=== PATIENT | female | born 1960 | race Caucasian/White ===

== ENCOUNTER → 2020-12-29 13:29 | Outpatient (CLI) | payer OTHER, SELFPAY ==
--- NOTE | ~2020-12-29 | XR_ITS ---
XR lumbar spine min 4V DATE: 12/29/2020 14:05 INDICATION: Low back pain TECHNIQUE: AP, lateral, coned lateral lumbosacral views. Flexion and extension lateral views. COMPARISON: None FINDINGS: Intervertebral cage device at L4-5. Left L4-5 posterior fusion with pedicle screws and rods. There is diffuse osteopenia. There is mild levoscoliosis of the lower thoracic and lumbar spine. The included lower thoracic and lumbar pedicles are intact. No lumbar spine fracture or bone destruct ion is evident. There is no instability evident on flexion or extension. There is severe degenerative disc disease at L5-S1. There is mild degenerative disc disease at L1-2 a nd L2-3. The sacroiliac joints are intact. IMPRESSION: Intervertebral and posterior left surgical spinal fusion at L4-5 Severe degenerative disc disease at L5-S1 Osteopenia Reviewed, dictated and finalized at location B.
== END ==
PROVIDERS: PCP Internal Medicine
DX: M47.817 Spondylosis without myelopathy or radiculopathy, lumbosacral region (principal); Z98.1 Arthrodesis status
CPT/HCPCS: 72110

== ENCOUNTER 2021-02-23 09:41 | Outpatient (CLI) | payer OTHER, SELFPAY ==
[2021-02-23 10:27] LABS: Alanine Aminotransferase 15 U/L (4-35); Albumin Level 4.2 g/dL (3.5-5.1); Alkaline Phosphatase 59 U/L (38-126); Anion Gap 5 mmol/L (8-16); Aspartate Amino Transferase 23 U/L (14-36); Bilirubin,Total 0.4 mg/dL (0.2-1.3); Blood Urea Nitrogen 8 mg/dL (7-17); Carbon Dioxide 29 mmol/L (22-30); Chloride 93 mmol/L (98-107); Cholesterol 266 mg/dL (0-200); Creatine Kinase 30 U/L (30-135); Estimated Glomerular Filt Rate > 60; Glucose 93 mg/dL (65-110); HDL Direct 67 mg/dL; Potassium 4.2 mmol/L (3.4-5.0); Sodium 127 mmol/L (137-145); Triglycerides 215 mg/dL (<150)
[2021-02-23 10:38] LABS: LDL Cholesterol Direct 157 mg/dL
== END 2021-02-23 09:42 | disposition home or self-care (01) ==
LOC: ANHLAB 09:44
PROVIDERS: PCP Internal Medicine; Visit Provider Internal Medicine Cardiovascular Disease
DX: E78.2 Mixed hyperlipidemia (principal); Z78.9 Other specified health status
CPT/HCPCS: 36415; 80053; 80061; 82550

== ENCOUNTER 2021-09-26 15:11 | Outpatient (CLI) | payer OTHER, SELFPAY ==
--- NOTE | ~2021-09-26 | US_ITS ---
EXAMINATION: US carotid duplex BI DATE: 09/26/2021 15:38 INDICATION: Bilateral carotid bruits TECHNIQUE: Grayscale, color Doppler, and pulsed Doppler images of the cervical carotid arteries were obtained. The degree of vessel stenosis is placed in one of the following categories: normal, <50%, 5 0-69%, >=70% but less than near-occlusion, near-occlusion, or total occlusion. Note that percent sten osis relative to normal distal artery lumen diameter is indirectly measured from velocity measurement s as described by Kristofer, et al. Radiology 2003; [id number]. Notes: Normal: Peak systolic velocity <125 centimeters/sec and no plaque <50%. Peak systolic velocity <125 ( EDV <40; ICA/CCA PSV ratio <2.0; used these factors only a tandem lesions or low cardiac output or co ntralateral disease) 50-69 %: PSV 125-230 (EDV 40-100; ratio 2-4) >= 70% but less than near occlusion: PSV greater than 230 (EDV > 100; ratio> 4.0) Near Occlusion: PSV that is variable; markedly narrowed lumen Occlusion: Absent flow on color/spectral Doppler and no lumen on toro scale. COMPARISON: None. FINDINGS: RIGHT: The right common carotid artery (CCA) peak systolic velocity (PSV) is 53 cm/s. The right internal car otid artery (ICA) PSV is 84 cm/s. The right ICA end-diastolic velocity (EDV) is 35 cm/s. The right IC A/CCA PSV ratio is 1.6. The external carotid artery (ECA) PSV is 103 cm/s. There is antegrade flow in the right vertebral artery. LEFT: The left CCA PSV is 79 cm/s. The left ICA PSV is 82 cm/s. The left ICA EDV is 38 cm/s. The left ICA/C CA PSV ratio is 1.0. The ECA PSV is 134 cm/s. There is antegrade flow in the left vertebral artery. IMPRESSION: 1. Less than 50% stenosis in the right internal carotid artery by sonographic criteria. 2. Less than 50% stenosis in the left internal carotid artery by sonographic criteria. Reviewed, dictated and finalized at location A. IMPRESSION: 1. Less than 50% stenosis in the right internal carotid artery by sonographic natalya tang. 2. Less than 50% stenosis in the left internal carotid artery by sonographic beena garcia.
== END 2021-09-26 15:12 | disposition home or self-care (01) ==
PROVIDERS: PCP Internal Medicine; Visit Provider Internal Medicine Cardiovascular Disease
DX: R09.89 Other specified symptoms and signs involving the circulatory and respiratory systems (principal); H93.A9 Pulsatile tinnitus, unspecified ear; I65.23 Occlusion and stenosis of bilateral carotid arteries
CPT/HCPCS: 93880

== ENCOUNTER 2022-01-17 09:22 | Outpatient (CLI) | payer OTHER, SELFPAY ==
[2022-01-17 10:17] LABS: Anion Gap 9 mmol/L (8-16); Blood Urea Nitrogen 11 mg/dL (7-17); Carbon Dioxide 29 mmol/L (22-30); Chloride 97 mmol/L (98-107); Estimated Glomerular Filt Rate 45; Glucose 84 mg/dL (65-110); Potassium 3.9 mmol/L (3.4-5.0); Sodium 135 mmol/L (137-145)
== END 2022-01-17 09:23 | disposition home or self-care (01) ==
PROVIDERS: Anesthesiology; PCP Internal Medicine; Visit Provider Neurological Surgery
DX: M47.816 Spondylosis without myelopathy or radiculopathy, lumbar region (principal); Z79.899 Other long term (current) drug therapy; Z01.818 Encounter for other preprocedural examination
CPT/HCPCS: 36415; 80048; 86850; 86900; 86901

== ENCOUNTER 2022-01-20 16:03 | Observation (INO) | payer OTHER, SELFPAY ==
[2022-01-12 11:26] VITALS: BMI 27.4
--- NOTE | 2022-01-12 11:47 | PC.NURSE ---
Report to the Outpatient Waiting Room, entrance under the green pavilion located off [facility], at time 10:00 on date 01/19/22. OR Time: 12:00. Time changes happen often and if your time is changed the preop area will call you the afternoon before. - You and your visitor will be asked to self-screen and do not enter if you have any COVID symptoms. - We encourage only one visitor and NO visitors under age 16 are allowed at this time. Your visitor will receive communication by the phone number that is given day of service. - The patient visitor is requested to social distance or may leave the building when not with patient due to restrictions. - A mask is required within the hospital. Patients may have clear liquids (water, carbonated beverages, clear teas, apple juice) until 3 hours prior to surgery (9:00) with a maximum of 20 ounces. - No food from midnight until time of surgery Take the following medications with a SIP of water the morning of surgery: CARVEDILOL, GABAPENTIN, LEVOTHYROXINE, VENLAFAXINE, TRAMADOL IF NEEDED Medications to discontinue per physician: VITAMINS/SUPPLEMENTS Date to take last dose: 01/15/[address] INTERIANO Please no make-up, nail faroese, hairspray, perfume, deodorant, or body powder the day of surgery. No jewelry (including any body piercings) or valuables the day of surgery, leave them at home. Please take a shower or bath the night before, or the morning of, surgery with an antibacterial soap. Wear comfortable, loose fitting clothing. - Jewelry must be removed prior to entering the operating room. Rings and piercings that are not removed may be cut off. - The hospital will not accept responsibility for valuables. - Please leave all valuables, including medications, at home the day of surgery. If you are going home after surgery, a licensed interstate bus driver must drive you home. - NO public transportation without another adult. - We recommend that an adult stay with you for 24 hours following discharge. - We also recommend that you do not drive, make important decision, drink alcoholic beverages, or take any drugs that were not prescribed by your health care provider for at least 24 hours after your discharge time. Follow any additional instructions given to you from your surgeon. If you or anyone in your household have experienced Covid symptoms in the past week, please notify your surgeon or the nurse liaison at the phone number below for possible testing. Telephone instructions given to PT - SIMONE ALEJANDRO and asked if any additional questions and then verbalized understanding. Patient advised to call surgeon office or pre surgery nurse liaison [phone] if any additional questions.
[2022-01-19] VITALS (16 sets, daily range): BP systolic 88–138; BP diastolic 42–73; PULSE 54–97; RESP 14–20; TEMP 36.1–37.2; O2SAT 92–100
[2022-01-19] MEDS: LACTATED RINGERS 1,000 ML 30 ML IV CONT ×2 (10:30→14:59)
--- NOTE | 2022-01-19 11:35 | WPDANESEPPF ---
Anes - Initial Pre Proc Eval Procedure: Operation Date: 01/19/22 12:00 Proposed Procedures p L5 S1 Posterior Lumbar Interbody Fusion - Randolph Estrada MD Date/Time: 01/19/22 11:35 Surgeon: Randolph Estrada MD Pre Op Diagnosis: L5 S1 Spondylosis Stenosis Patient Data Age: 61 Gender: F Height: 1.63 m Weight: 71.4 kg Last Vital Signs Temp 97.4 F L 01/19/22 10:30 Pulse 63 01/19/22 10:30 Resp 16 01/19/22 10:30 BP 132/67 01/19/22 10:30 Pulse Ox 98 01/19/22 10:30 O2 Del Method Room Air 01/19/22 10:30 Allergies Allergy/AdvReac Type Severity Reaction Status Date / Time lisinopril Allergy Rash Verified 01/19/22 10:58 Sulfa (Sulfonamide Allergy Rash Verified 01/19/22 10:58 Antibiotics) Home Medications Medication Instructions Recorded Confirmed Type atorvastatin 20 mg tablet 20 mg PO DAILY 11/21/21 01/12/22 History diclofenac sodium 75 mg 75 mg PO BID 11/21/21 01/12/22 History tablet,delayed release fluticasone propionate 50 1 spray intranasal BID 11/21/21 01/19/22 History mcg/actuation nasal spray,suspension (Allergy Relief (fluticasone)) furosemide 20 mg tablet 10 mg PO QAM 11/21/21 01/12/22 History gabapentin 300 mg capsule 300 mg PO TID 11/21/21 01/12/22 History levothyroxine 75 mcg capsule 75 mcg PO DAILY 11/21/21 01/19/22 History losartan 50 mg tablet 50 mg PO DAILY 11/21/21 01/12/22 History montelukast 10 mg tablet 10 mg PO DAILY 11/21/21 01/12/22 History (Singulair) tramadol 50 mg tablet 50 mg PO Q6H PRN Pain 11/21/21 01/12/22 History trazodone 100 mg tablet 100 mg PO QHS 11/21/21 01/19/22 History venlafaxine 150 mg 150 mg PO DAILY 11/21/21 01/19/22 History capsule,extended release 24 hr biotin 800 mcg tablet 800 mcg PO DAILY 01/12/22 01/12/22 History carvedilol 6.25 mg tablet 6.25 mg PO BID 01/12/22 01/19/22 History estradiol 0.5 mg tablet 0.5 mg PO DAILY 01/12/22 01/12/22 History fexofenadine 180 mg tablet 180 mg PO DAILY 01/12/22 01/12/22 History inulin 2 gram chewable tablet 2 g PO DAILY 01/12/22 01/12/22 History (Fiber Gummies) Patient hx anesthesia problems: none Family hx anesthesia problems: none Results Review: All pre-operative results and documents have been reviewed as part of the pre-operative evaluation. [facility] Past Medical History Medical History (Updated 01/19/22 @ 11:43 by Sanjay Oscar MD) Acute arthritis Allergies Cardiomyopathy Endometrioid adenofibroma Fusion of lumbar spine Heart disease Pacemaker Thyroid disease Surgical History Surgical History (Updated 01/19/22 @ 11:43 by Sanjay Oscar MD) AICD (automatic cardioverter/defibrillator) present H/O: hysterectomy History of back surgery Hx of appendectomy Hx of cardiac cath Hx of tonsillectomy Status post creation of pericardial window Tubal ligation status Family History Family History (Updated 11/21/21 @ 15:24 by Terri Hdz MA) Other Asthma Diabetes mellitus Heart disease Hypertension Social History Social History (Updated 11/21/21 @ 15:25 by Terri Hdz MA) Years smoked: 5 Smoking status: Former smoker Tobacco type: cigarettes Smoking end date: 04/02/80 Alcohol intake: current Alcohol use details: RARE Substance use: never Substance use type: does not use Living arrangements: with family Spiritual care concerns: No Anes - Eval Final PreProcedure Day of Procedure 01/19/22 11:36 Patient weight: normal Heart: regular rate and rhythm Lungs: clear to auscultation Airway: Mallampati scale class II Neurological: alert and oriented Last oral intake: >/= 8 hours ASA classification: III Emergent: no Anesthetic plan: proceed Anesthesia type and monitoring: general ETT and standard monitoring Results Review: All pre-operative results and documents have been reviewed as part of the pre-operative evaluation. Informed Consent: The patient's anesthetic plan and its attendant risks and
--- NOTE | 2022-01-19 11:46 | WPDANESEPPF ---
Anes - Initial Pre Proc Eval Procedure: Operation Date: 01/19/22 12:00 Proposed Procedures p L5 S1 Posterior Lumbar Interbody Fusion - Randolph Estrada MD Date/Time: 01/19/22 11:46 Surgeon: Randolph Estrada MD Pre Op Diagnosis: L5 S1 Spondylosis Stenosis Patient Data Age: 61 Gender: F Height: 1.63 m Weight: 71.4 kg Last Vital Signs Temp 97.4 F L 01/19/22 10:30 Pulse 63 01/19/22 10:30 Resp 16 01/19/22 10:30 BP 132/67 01/19/22 10:30 Pulse Ox 98 01/19/22 10:30 O2 Del Method Room Air 01/19/22 10:30 Allergies Allergy/AdvReac Type Severity Reaction Status Date / Time lisinopril Allergy Rash Verified 01/19/22 10:58 Sulfa (Sulfonamide Allergy Rash Verified 01/19/22 10:58 Antibiotics) Home Medications Medication Instructions Recorded Confirmed Type atorvastatin 20 mg tablet 20 mg PO DAILY 11/21/21 01/12/22 History diclofenac sodium 75 mg 75 mg PO BID 11/21/21 01/12/22 History tablet,delayed release fluticasone propionate 50 1 spray intranasal BID 11/21/21 01/19/22 History mcg/actuation nasal spray,suspension (Allergy Relief (fluticasone)) furosemide 20 mg tablet 10 mg PO QAM 11/21/21 01/12/22 History gabapentin 300 mg capsule 300 mg PO TID 11/21/21 01/12/22 History levothyroxine 75 mcg capsule 75 mcg PO DAILY 11/21/21 01/19/22 History losartan 50 mg tablet 50 mg PO DAILY 11/21/21 01/12/22 History montelukast 10 mg tablet 10 mg PO DAILY 11/21/21 01/12/22 History (Singulair) tramadol 50 mg tablet 50 mg PO Q6H PRN Pain 11/21/21 01/12/22 History trazodone 100 mg tablet 100 mg PO QHS 11/21/21 01/19/22 History venlafaxine 150 mg 150 mg PO DAILY 11/21/21 01/19/22 History capsule,extended release 24 hr biotin 800 mcg tablet 800 mcg PO DAILY 01/12/22 01/12/22 History carvedilol 6.25 mg tablet 6.25 mg PO BID 01/12/22 01/19/22 History estradiol 0.5 mg tablet 0.5 mg PO DAILY 01/12/22 01/12/22 History fexofenadine 180 mg tablet 180 mg PO DAILY 01/12/22 01/12/22 History inulin 2 gram chewable tablet 2 g PO DAILY 01/12/22 01/12/22 History (Fiber Gummies) Patient hx anesthesia problems: none Family hx anesthesia problems: none Results Review: All pre-operative results and documents have been reviewed as part of the pre-operative evaluation. [facility] Past Medical History Medical History (Updated 01/19/22 @ 11:43 by Sanjay Oscar MD) Acute arthritis Allergies Cardiomyopathy Endometrioid adenofibroma Fusion of lumbar spine Heart disease Pacemaker Thyroid disease Surgical History Surgical History (Updated 01/19/22 @ 11:43 by Sanjay Oscar MD) AICD (automatic cardioverter/defibrillator) present H/O: hysterectomy History of back surgery Hx of appendectomy Hx of cardiac cath Hx of tonsillectomy Status post creation of pericardial window Tubal ligation status Family History Family History (Updated 11/21/21 @ 15:24 by Terri Hdz MA) Other Asthma Diabetes mellitus Heart disease Hypertension Social History Social History (Updated 11/21/21 @ 15:25 by Terri Hdz MA) Years smoked: 5 Smoking status: Former smoker Tobacco type: cigarettes Smoking end date: 04/02/80 Alcohol intake: current Alcohol use details: RARE Substance use: never Substance use type: does not use Living arrangements: with family Spiritual care concerns: No Anes - Eval Final PreProcedure Day of Procedure 01/19/22 11:46 Patient weight: normal Heart: regular rate and rhythm Lungs: clear to auscultation Airway: Mallampati scale class II Neurological: alert and oriented Last oral intake: >/= 8 hours ASA classification: III Emergent: no Anesthetic plan: proceed Anesthesia type and monitoring: general ETT and standard monitoring Results Review: All pre-operative results and documents have been reviewed as part of the pre-operative evaluation. Informed Consent: The patient's anesthetic plan and its attendant risks and
--- NOTE | 2022-01-19 12:14 | WPDHPUPDATE1 ---
History and Physical Update Update Date/Time: 01/19/22 12:14 History and Physical has been reviewed, including an updated exam of the patient. There are NO changes in the patient's condition. Risks, benefits, and alternatives have been discussed and questions answered. Patient agrees to proceed with procedure.
--- NOTE | 2022-01-19 12:14 | PM.IMHP ---
H&P: HPI History of Present Illness Date/Time: 01/19/22 12:14 Chief Complaint: Back and leg pain Narrative: Estephania is a 61-year-old female with back and leg pain related the pathology at L5-S1 below previous fusion done at L4-5. She has spondylosis and stenosis at that level. She presents now for advancement of her fusion to S1 that is an L5-S1 posterior lumbar interbody fusion. She has not different than when we last saw her. She is not having dermatomal numbness. She does not have specific muscle group weakness. She is not having bowel or bladder incontinence. Review of Systems Review of Systems: Patient denies shortness of breath, cough, fever, chills, nausea, vomiting, weight loss, weight gain, dysuria, chest pain. She has back and leg pain as noted above. Review of systems otherwise negative on 12 systems except as noted elsewhere. [facility] Past Medical History Medical History (Updated 01/19/22 @ 11:43 by Sanjay Oscar MD) Acute arthritis Allergies Cardiomyopathy Endometrioid adenofibroma Fusion of lumbar spine Heart disease Pacemaker Thyroid disease Surgical History Surgical History (Updated 01/19/22 @ 11:43 by Sanjay Oscar MD) AICD (automatic cardioverter/defibrillator) present H/O: hysterectomy History of back surgery Hx of appendectomy Hx of cardiac cath Hx of tonsillectomy Status post creation of pericardial window Tubal ligation status Family History Family History (Updated 11/21/21 @ 15:24 by Terri Hdz MA) Other Asthma Diabetes mellitus Heart disease Hypertension Social History Social History (Updated 11/21/21 @ 15:25 by Terri Hdz MA) Years smoked: 5 Smoking status: Former smoker Tobacco type: cigarettes Smoking end date: 04/02/80 Alcohol intake: current Alcohol use details: RARE Substance use: never Substance use type: does not use Living arrangements: with family Spiritual care concerns: No Meds Home Medications and Allergies Home Medications Medication Instructions Recorded Confirmed Type atorvastatin 20 mg tablet 20 mg PO DAILY 11/21/21 01/12/22 History diclofenac sodium 75 mg 75 mg PO BID 11/21/21 01/12/22 History tablet,delayed release fluticasone propionate 50 1 spray intranasal BID 11/21/21 01/19/22 History mcg/actuation nasal spray,suspension (Allergy Relief (fluticasone)) furosemide 20 mg tablet 10 mg PO QAM 11/21/21 01/12/22 History gabapentin 300 mg capsule 300 mg PO TID 11/21/21 01/12/22 History levothyroxine 75 mcg capsule 75 mcg PO DAILY 11/21/21 01/19/22 History losartan 50 mg tablet 50 mg PO DAILY 11/21/21 01/12/22 History montelukast 10 mg tablet 10 mg PO DAILY 11/21/21 01/12/22 History (Singulair) tramadol 50 mg tablet 50 mg PO Q6H PRN Pain 11/21/21 01/12/22 History trazodone 100 mg tablet 100 mg PO QHS 11/21/21 01/19/22 History venlafaxine 150 mg 150 mg PO DAILY 11/21/21 01/19/22 History capsule,extended release 24 hr biotin 800 mcg tablet 800 mcg PO DAILY 01/12/22 01/12/22 History carvedilol 6.25 mg tablet 6.25 mg PO BID 01/12/22 01/19/22 History estradiol 0.5 mg tablet 0.5 mg PO DAILY 01/12/22 01/12/22 History fexofenadine 180 mg tablet 180 mg PO DAILY 01/12/22 01/12/22 History inulin 2 gram chewable tablet 2 g PO DAILY 01/12/22 01/12/22 History (Fiber Gummies) Allergies Allergy/AdvReac Type Severity Reaction Status Date / Time lisinopril Allergy Rash Verified 01/19/22 10:58 Sulfa (Sulfonamide Allergy Rash Verified 01/19/22 10:58 Antibiotics) Vital Signs Vital Signs - 24 hr 01/19/22 10:30 Temperature 97.4 F L Pulse Rate 63 Respiratory Rate 16 Blood Pressure 132/67 Pulse Oximetry 98 Oxygen Delivery Room Air Exam Neuro: Other: Strength is 5/5 in all muscle groups of the bilateral lower extremities. Sensation is intact to light touch throughout the lower extremities. Clear to auscultation Regular rate and rhythm Assessment and
[2022-01-19] MEDS: ceFAZolin 2 GM/D5W 50 ML 2 GM/50 ML BAG IVPB (12:37)
[2022-01-19] MEDS: BUPIVACAINE/EPINEPHRINE 0.25% 50 ML VIAL INFILTRATE (13:26)
--- NOTE | 2022-01-19 14:44 | W.PM.PROC2 ---
Procedure Note - Detailed Date of Procedure 01/19/22 Pre-op Diagnosis L5 S1 Spondylosis Stenosis Post-op Diagnosis Same Procedure Performed At L5-S1 complete laminectomy and bilateral facetectomy, L5-S1 complete diskectomy and interbody arthrodesis utilizing titanium interbody device and local autograft L5 and S1 pedicle screw instrumentation, revision of L4-5 instrumentation. Surgeon Randolph Estrada MD [employer] Stephie Anesthesia General Indications Estephania is a 61-year-old female with back and leg pain related to the pathology at L5-S1 presents for decompression and fusion at that level. Description of Procedure The patient was brought to the operating room in the supine position, was sedated, intubated and placed under general anesthesia in routine fashion. She was then turned into the prone position on a Ted frame. The of operation on her back was examined, marked for incision, prepped and draped in routine sterile fashion. Incision was marked over the L4 through S1 spinous processes in the midline. This area was injected with 0.5% lidocaine with [id number] epinephrine. Intravenous antibiotics given prior to incision. Incision was made with a 10 blade scalpel down to the lumbodorsal fascia. A subperiosteal dissection of the muscle soft tissue away from the spinous process and lamina at L5-S1 and at L4-5 was performed with a subperiosteal elevator and Bovie cautery. A verifying x-rays obtained to verify the level of operation. On the left at L4-5 the instrumentation was uncovered using Bovie cautery. This was removed with the appropriate drivers. This included the caps screws and link. There was no instrumentation placed on the right at the previous operation. The L5 spinous process was removed with a Chintan rongeur. Kerrison punches curved curettes and a [place]ell rongeur were used to remove the lamina in the midline and the soft contents of the canal were encountered. A Midas Jimy drill was used to resect the pars bilaterally at L5. The inferior articular process facet of L5 could then be removed bilaterally. These +spinous process were stripped the soft tissue and morselized for later use as interbody autograft. Kerrison punches and curved curettes were used to define a plane with the dura and remove bone and ligament flush with the pedicle and through the foramen widely decompressing the exiting nerve roots. With the thecal sac retracted and protected the disc space was entered bilaterally using an 11 blade scalpel. Scrapers a very sizes, curettes of various configurations, pituitary rongeur and a rasp were used to remove as much cartilaginous endplate disc material as possible down to bleeding cortical flat surfaces on the opposing bones. The disc space was incised appropriately sized interbody devices were chosen. These were 8 mm x 23 mm the device. This was placed from the left side across the disc space after the disc space was filled with local autograft bone using the appropriate tap and funnel. The interbody device was also filled with local autograft bone prior to placement. Pedicle screw instrumentation was then performed by observing and palpating the pedicle while a hole was made superior to the process above the pedicle using a Odoo (formerly OpenERP) Jimy drill with an a.m. 8 bit. The pedicle was then cannulated with a pedicle probe, checked for continuity with the ball probe, tapped with a 5.5 mm tap and then a 6.5 mm tap. And 7.5 by 45 mm screws were placed at L5 for L5 and S1 on the left and S1 on the right and a 7.5 x 50 mm screws placed at L5 on the right. Rods were placed in the screw heads on either side and secured in position using the caps that purpose. These were definitively tightened with a torque and anti torque device. A verifying x-rays obtained to verify good position of the instrumentation which was confirmed. The wound was then copiously irrigated with bacitracin irrigation all bleeding stopped with bipolar and Bov
[2022-01-19] MEDS: fentaNYL CITRATE INJ (*CRX) 100 MCG/2 ML VIAL 25 MCG IV PUSH ×8 (15:14→16:08)
[2022-01-19] MEDS: HYDROmorphone HCL INJ (*CRX) 1 MG/ML SYR 0.5 MG IV PUSH ×4 (15:27→15:57)
[2022-01-19] MEDS: GABAPENTIN 300 MG CAPSULE PO (17:27)
[2022-01-19] MEDS: FLUTICASONE PROPIONATE 0.05% NA SPR 16 GM BTL (*BKC) 1 SPRAY NASAL (17:27)
[2022-01-19] MEDS: carvediloL 6.25 MG TABLET PO (17:27)
[2022-01-19] MEDS: HYDROcodone/acetaminophen (*CRX) 10-325 MG TABLET 1 TAB PO (17:28)
[2022-01-19] MEDS: DOCUSATE SODIUM 100 MG CAPSULE PO (20:45)
[2022-01-19] MEDS: HYDROcodone/acetaminophen (*CRX) 5-325 MG TABLET 1 TAB PO (21:27)
[2022-01-19] MEDS: traZODone HCL 50 MG TABLET 100 MG PO (21:27)
--- NOTE | ~2022-01-20 | XR_ITS ---
EXAMINATION: XR fluoroscopy no charge DATE: 01/19/2022 14:46 INDICATION: Lumbar fusion TECHNIQUE: 5 lateral fluoroscopic images of the MR spine were obtained during procedure performed by Dr. Estrada. Radiologist was not present for the imaging or procedure. The amount of fluoroscopy shoshana e used during this procedure was 0.1 minutes. COMPARISON: 12/29/2020 FINDINGS: Initial images demonstrate a prior combined instrumented anterior and posterior spinal fusion at L4-L 5 with vertical link and pedicle screws, left-sided based on prior imaging, as well as interbody bone graft cage. Tissue retractors and lap sponge markers project over the surgical defect posterior to L5 -S1. The L4 and L5 spinous processes are not visualized however is unclear whether this represents ch kristine of laminectomy or whether this is an artifact of overpenetration. Subsequent images demonstrate extension of the anterior and posterior spinal fusion at L5-S1 with a new bone graft cage at the disc space and extension of the vertical link and 2 screws at the level of S1. There also appears to be ad dition of a second vertical link and pedicle screws presumably right-sided at L5-S1. Surgical clips ar e seen more anteriorly in the pelvis likely related to prior lymph node dissection. IMPRESSION: 1. Fluoroscopy utilized during extension of a previously L4-L5, currently L4-S1 combined instrumented anterior and posterior spinal fusion. See procedure note for further detail. Reviewed, dictated and finalized at location A.
[2022-01-20] MEDS: HYDROcodone/acetaminophen (*CRX) 5-325 MG TABLET 1 TAB PO (02:30)
[2022-01-20] MEDS: LEVOTHYROXINE SODIUM 75 MCG TABLET PO (05:29)
[2022-01-20 05:39] VITALS: BP 96/48; PULSE 68; RESP 12; TEMP 36.8; O2SAT 95
[2022-01-20 07:55] VITALS: BP 97/53
[2022-01-20] MEDS: HYDROmorphone HCL INJ (*CRX) 1 MG/ML SYR 0.5 MG IV PUSH ×2 (07:56→11:44)
[2022-01-20 08:00] VITALS: PULSE 68; RESP 12; O2SAT 95
--- NOTE | 2022-01-20 08:18 | WPDANESPN ---
Anes - Prog Note Post-Op Date/Time: 01/20/22 08:18 Cardiovascular status: normal Respiratory status: normal Airway patency: baseline Mental status: baseline Post-Op hydration status: normal Vital Signs: Last Vital Signs Temp 36.8 C 01/20/22 05:39 Pulse 68 01/20/22 05:39 Resp 12 01/20/22 05:39 BP 97/53 L 01/20/22 07:55 Pulse Ox 95 01/20/22 05:39 O2 Del Method Room Air 01/19/22 20:00 O2 Flow Rate 01/19/22 15:30 Pain Score (VAS): 12/10, patient was about to ask nurse for pain medication I/O: Intake & Output 01/19/22 01/20/22 01/20/22 23:59 07:59 15:59 Intake Total 1650 1650 Output Total 440 1125 Balance 1210 525 Post-procedural complaints: none Patient Feedback: Patient satisfied with anesthetic care.
[2022-01-20] MEDS: FLUTICASONE PROPIONATE 0.05% NA SPR 16 GM BTL (*BKC) 1 SPRAY NASAL ×2 (09:41→17:31)
[2022-01-20] MEDS: VENLAFAXINE HCL XR 75 MG CAP.ER.24H 150 MG PO (09:41)
[2022-01-20] MEDS: LORATADINE 10 MG TABLET PO (09:41)
[2022-01-20] MEDS: GABAPENTIN 300 MG CAPSULE PO ×2 (09:41→17:31)
[2022-01-20] MEDS: ATORVASTATIN 20 MG TABLET PO (09:41)
[2022-01-20] MEDS: MONTELUKAST SODIUM 10 MG TABLET PO (09:41)
[2022-01-20] MEDS: estradioL 0.5 MG TABLET PO (09:41)
[2022-01-20] MEDS: FUROSEMIDE 10 MG TABLET PO (09:41)
[2022-01-20 14:00] VITALS: BP 93/44; PULSE 73; RESP 16; TEMP 36.7; O2SAT 98
--- NOTE | 2022-01-20 14:27 | WPDNEUROSGPN ---
Progress Note: A&P Assessment and Plan (1) Lumbar spondylosis: Code(s): M47.816 - Spondylosis without myelopathy or radiculopathy, lumbar region Status: Acute Assessment and Plan: Patient is a very pleasant 61 year old female POD #1 from lumbar decompression and fusion LE pain resolved Making good progress with PT Drain d/luis Patient takes tramadol at home - will transition to this Soft BP today - BP meds held Anticipate d/c payton today, continue to mobilize Likely d/c in am tomorrow Subjective Date/time seen: 01/20/22 14:27 Review of Systems Review of Systems: patient notes improvement in her lower extremity pain Back pain controlled by IV dilaudid Drain output decreasing - drain disconnected this am Exam Narrative: Awake, alert, oriented x3 Speech CF LOCO EOMI FAce= TML MAEW with good strength Dressing CDI Objective Data Vital Signs Vital Signs: Vital Signs - 24 hr 01/19/22 14:59 01/19/22 15:15 01/19/22 15:30 Temperature 98.9 F Pulse Rate 54 L 61 59 L Respiratory Rate 16 14 14 Blood Pressure 100/50 L 113/56 L 119/54 L Pulse Oximetry 99 100 100 Oxygen Delivery Simple Face Mask Simple Face Mask Simple Face Mask Oxygen Flow Rate 8 10 10 01/19/22 15:45 01/19/22 16:00 01/19/22 16:15 Temperature Pulse Rate 56 L 56 L 66 Respiratory Rate 16 16 16 Blood Pressure 90/73 L 138/64 131/66 Pulse Oximetry 100 97 100 Oxygen Delivery Room Air Room Air Room Air Oxygen Flow Rate 01/19/22 16:27 01/19/22 17:27 01/19/22 16:28 Temperature 97.8 F Pulse Rate 58 L 97 97 Respiratory Rate 14 14 Blood Pressure 114/55 L 102/51 L Pulse Oximetry 96 95 Oxygen Delivery Room Air Oxygen Flow Rate 01/19/22 16:58 01/19/22 17:13 01/19/22 17:58 Temperature 97.8 F 97 F L 97.1 F L Pulse Rate 97 69 68 Respiratory Rate 14 15 14 Blood Pressure 102/51 L 103/42 L 93/43 L Pulse Oximetry 95 98 92 Oxygen Delivery Oxygen Flow Rate 01/19/22 18:28 01/19/22 19:28 01/19/22 21:23 Temperature 97 F L 97.7 F Pulse Rate 65 78 Respiratory Rate 14 20 Blood Pressure 90/50 L 88/46 L 96/43 L Pulse Oximetry 93 96 Oxygen Delivery Oxygen Flow Rate 01/19/22 20:00 01/20/22 05:39 01/20/22 07:55 Temperature 98.2 F Pulse Rate 68 Respiratory Rate 12 Blood Pressure 96/48 L 97/53 L Pulse Oximetry 95 Oxygen Delivery Room Air Oxygen Flow Rate 01/20/22 08:30 01/20/22 08:00 Temperature Pulse Rate 68 Respiratory Rate 12 Blood Pressure Pulse Oximetry 95 Oxygen Delivery Room Air Nasal Cannula Oxygen Flow Rate 1 Intake/Output Intake/Output: Intake & Output 01/17/22 01/18/22 01/19/22 01/20/22 23:59 23:59 23:59 23:59 Intake Total 3200 2130 Output Total 440 1250 Balance 2760 880 Meds/Results Medications: Active Medications Generic Name Dose Route Start Last Admin Trade Name Freq PRN Reason Stop Dose Admin Hydrocodone Bitart/Acetaminophen 1 tab 01/19/22 16:28 01/20/22 02:30 Hydrocodone/Acetaminophen (*Crx) 5-325 Mg Tablet PO 1 tab Q4H PRN Administration Mild Pain (1-3) Hydrocodone Bitart/Acetaminophen 1 tab 01/19/22 16:28 01/19/22 17:28 Hydrocodone/Acetaminophen (*Crx) 10-325 Mg Tablet PO 1 tab Q4H PRN Administration Moderate Pain (4-6) Al Hydrox/Mg Hydrox/Simethicone 20 ml 01/19/22 16:28 Mag Hydrox/Al Hydrox/Simeth 30 Ml Udc PO Q4H PRN Indigestion/Heartburn Atorvastatin Calcium 20 mg 01/20/22 09:00 01/20/22 09:41 Atorvastatin 20 Mg Tablet PO 20 mg DAILY DENNISE Administration Bisacodyl 10 mg 01/19/22 16:28 Bisacodyl 10 Mg Suppository RECTAL DAILY PRN Constipation Carvedilol 6.25 mg 01/19/22 17:00 01/20/22 12:57 Carvedilol 6.25 Mg Tablet PO Not Given BID DENNISE Cyclobenzaprine HCl 10 mg 01/19/22 16:28 Cyclobenzaprine Hcl 10 Mg Tablet PO TID PRN Muscle Spasms Docusate Sodium 100 mg 01/19/22 21:00 01/20/22 12:57 Docusate So
[2022-01-20] MEDS: traMADol HCL (*CRX) 50 MG TABLET PO (15:47)
[2022-01-20 20:18] VITALS: BP 117/53; PULSE 60; RESP 18; TEMP 37.1; O2SAT 98
[2022-01-20] MEDS: traZODone HCL 50 MG TABLET 100 MG PO (20:42)
[2022-01-20] MEDS: DOCUSATE SODIUM 100 MG CAPSULE PO (20:42)
[2022-01-20] MEDS: CYCLOBENZAPRINE HCL 10 MG TABLET PO (20:43)
[2022-01-21] MEDS: CYCLOBENZAPRINE HCL 10 MG TABLET PO ×2 (03:36→09:36)
[2022-01-21 05:46] VITALS: BP 115/54; PULSE 72; RESP 18; TEMP 37.3; O2SAT 98
[2022-01-21] MEDS: LEVOTHYROXINE SODIUM 75 MCG TABLET PO (06:52)
[2022-01-21] MEDS: FLUTICASONE PROPIONATE 0.05% NA SPR 16 GM BTL (*BKC) 1 SPRAY NASAL (08:20)
[2022-01-21] MEDS: MONTELUKAST SODIUM 10 MG TABLET PO (08:21)
[2022-01-21] MEDS: estradioL 0.5 MG TABLET PO (08:21)
[2022-01-21] MEDS: FUROSEMIDE 10 MG TABLET PO (08:21)
[2022-01-21] MEDS: GABAPENTIN 300 MG CAPSULE PO ×2 (08:21→13:58)
[2022-01-21 08:22] VITALS: PULSE 81
[2022-01-21] MEDS: carvediloL 6.25 MG TABLET PO (08:22)
[2022-01-21] MEDS: VENLAFAXINE HCL XR 75 MG CAP.ER.24H 150 MG PO (08:22)
[2022-01-21] MEDS: ATORVASTATIN 20 MG TABLET PO (08:23)
[2022-01-21] MEDS: LOSARTAN POTASSIUM 50 MG TABLET PO (08:23)
[2022-01-21] MEDS: LORATADINE 10 MG TABLET PO (08:23)
[2022-01-21] MEDS: DOCUSATE SODIUM 100 MG CAPSULE PO (08:29)
[2022-01-21 14:00] VITALS: BP 110/63; PULSE 88; RESP 18; TEMP 36.5; O2SAT 100
--- NOTE | 2022-02-20 09:41 | PM.DS ---
DS: Admitting Diagnosis Discharge Date 01/21/22 Admitting Diagnosis L5-S1 spondylosis, foraminal stenosis status post L4-5 posterior lumbar interbody fusion DS: Summary Hospital Course Hospital Course: Estephania is a 61-year-old female with back and leg pain related to the L5-S1 pathology who presents for dance min of her fusion to S1, that is an L5-S1 posterior lumbar interbody fusion with revision of the instrumentation above. She was taken to the operating room on 01/19/2022 with the aforementioned operation was performed without complication. By post operative day 1 her [place] and drain removed. Physical and occupational therapy were involved in her care. At the time of her discharge she was eating, ambulating and emptying her bladder pain was under control with by mouth pain medicine. Her wounds remain clean, dry and intact. She was afebrile stable vital signs. She was therefore allowed to be discharged home. Time Spent with Patient Time attestation: Total time spent providing and/or coordinating discharge services: Discharge Plan Discharge Consulting providers: Sanjay Oscar ; Juventino Mae ; Ade Barriga ; Sandy Milton Discharging Clinician: Sandy Milton Anticipated Discharge Date/Time: 01/21/22 14:41 Patient Disposition: Home, Self-Care Activity: may shower, no straining and other - see discharge instructions Diet: regular Patient Instructions: Antibiotic Form Stand Alone Forms: General Discharge Information Follow-up/Referrals: Randolph Estrada MD [Physician] - Discharge Medications: Continued atorvastatin 20 mg tablet 20 mg PO DAILY fluticasone propionate [Allergy Relief (fluticasone)] 50 mcg/actuation spray,suspension 1 spray intranasal BID Rx Instructions: administer into each nostril furosemide 20 mg tablet 10 mg PO QAM gabapentin 300 mg capsule 300 mg PO TID levothyroxine 75 mcg capsule 75 mcg PO DAILY losartan 50 mg tablet 50 mg PO DAILY montelukast [Singulair] 10 mg tablet 10 mg PO DAILY trazodone 100 mg tablet 100 mg PO QHS venlafaxine 150 mg capsule,extended release 24hr 150 mg PO DAILY tramadol 50 mg tablet 50 mg PO Q6H PRN (Reason: Pain) biotin 800 mcg Tablet 800 mcg PO DAILY fexofenadine 180 mg Tablet 180 mg PO DAILY estradiol 0.5 mg tablet 0.5 mg PO DAILY Fiber Gummies 2 gram Tablet,Chewable 2 g PO DAILY Held diclofenac sodium 75 mg tablet,delayed release (DR/EC) 75 mg PO BID Hold Instructions: Resume on 04/21/22. carvedilol 6.25 mg tablet 6.25 mg PO BID Hold Instructions: Resume on 01/22/22. No Action methylprednisolone [Medrol (Jose Angel)] 4 mg tablets,dose pack 4 mg PO DAILY Qty: 21 0RF Date of admission: 01/20/22 16:03 Primary Care Provider: Feliberto,Cory Sims Admitting Provider: Randolph Estrada Attending physician on admission: Randolph Estrada Condition: Improved
== END 2022-01-21 15:14 | disposition home or self-care (01) ==
LOC: ANHSURGERY 16:07 → ANH3MED 16:07
PROVIDERS: Admitting Provider Neurological Surgery; PCP Internal Medicine; Visit Provider Neurological Surgery
PROC: (CPT 22612; principal; 2022-01-19 12:00)
DX: M47.817 Spondylosis without myelopathy or radiculopathy, lumbosacral region (principal); M48.07 Spinal stenosis, lumbosacral region; M51.26 Other intervertebral disc displacement, lumbar region; M19.91 Primary osteoarthritis, unspecified site; Z98.890 Other specified postprocedural states; E07.9 Disorder of thyroid, unspecified; Z95.810 Presence of automatic (implantable) cardiac defibrillator; Z79.51 Long term (current) use of inhaled steroids; Z79.891 Long term (current) use of opiate analgesic; Z79.890 Hormone replacement therapy; Z79.899 Other long term (current) drug therapy; Z82.49 Family history of ischemic heart disease and other diseases of the circulatory system; Z87.891 Personal history of nicotine dependence
CPT/HCPCS: 22630; 22840; 22853; 20936; 97161; 97165; 99199; A9270; C1713; G0378; G0379; J0131; J0330; J0690; J1100; J1170; J2250; J2370; J2405; J2704; J2710; J3010; J3370; J7120

== ENCOUNTER 2022-03-06 13:37 | Outpatient (CLI) | payer OTHER, SELFPAY ==
--- NOTE | ~2022-03-06 | XR_ITS ---
EXAM: XR lumbar spine 2-3V DATE: 03/06/2022 13:52 HISTORY: 6wk post op PLIF . COMPARISON: 12/29/2020 and 01/19/2022. FINDINGS: Interval extension of the left fusion link to include S1. New right L5-S1 posterior fusion h ardware. L5-S1 interbody device, in good position. The L4-5 interbody device remains in stable and go od position. No hardware fracture or perihardware lucency. Surgical clips and sutures over the pelvis . 5 nonrib-bearing lumbar-type vertebral bodies. Pedicles intact. Normal vertebral body alignment. Ve rtebral body heights preserved. Mild multilevel degenerative disc disease and facet arthropathy. No f racture or dislocation. IMPRESSION: No radiographic evidence of hardware related complication. Reviewed, dictated and finalized at location K. [facility]IL[facility] ACTOR
== END 2022-03-06 13:38 | disposition home or self-care (01) ==
LOC: ANHLAB 13:40
PROVIDERS: PCP Neurological Surgery; Visit Provider Neurological Surgery
DX: Z98.890 Other specified postprocedural states (principal)
CPT/HCPCS: 72100

== ENCOUNTER 2022-05-03 11:57 | Outpatient (CLI) | payer OTHER, SELFPAY ==
--- NOTE | ~2022-05-03 | XR_ITS ---
EXAMINATION: XR lumbar spine 2-3V DATE: 05/03/2022 12:24 INDICATION: Low back pain TECHNIQUE: Two views of the lumbar spine were obtained. COMPARISON: 03/06/2022 FINDINGS: There are changes of posterior fusion on the right at L5-S1 and posterior fusion on the lef t from L4 through S1. There are changes of anterior fusion at L4-5 and L5-S1. Bone alignment is erwin l. There is no fracture. There is no evidence of hardware failure or loosening. Small degenerative os teophytes project from the anterior endplates of multiple vertebral bodies. There is mild loss of int ervertebral disc space height at L1-2 through L3-4. IMPRESSION: 1. Mild lumbar spondylosis and changes of anterior and posterior fusion of the lower lumbar spine wit hout acute findings. Reviewed, dictated and finalized at location F. COMPLIANCE IMPRESSION: 1. Mild lumbar spondylosis and changes of anterior and posterior fusion of the lower lumbar spine without acute findings.
== END 2022-05-03 11:58 | disposition home or self-care (01) ==
PROVIDERS: PCP Internal Medicine; Visit Provider Nurse Practitioner Adult Health
DX: M54.50 Low back pain, unspecified (principal); M47.816 Spondylosis without myelopathy or radiculopathy, lumbar region; Z98.1 Arthrodesis status
CPT/HCPCS: 72100

== ENCOUNTER 2022-11-20 03:41 | Outpatient (CLI) | payer OTHER, SELFPAY ==
[2022-11-15 10:31] VITALS: BMI 28.3
--- NOTE | 2022-11-16 11:50 | PC.NURSE ---
Pre Radiology instructions Report to the outpatient [facility] on date 11/20/22 at time 0800 for procedure Time: 1000. YOU MAY BE MONITORED AT HOSPITAL FOR UP TO 4 HOURS AFTER YOUR PROCEDURE. A visitor will be allowed to accompany the patient into the hospital. You and your visitor will be asked to self-screen and do not enter if you have any COVID symptoms. A mask is OPTIONAL within the hospital. Patients are to have no food or drink 6 hours prior to procedure time Driving will be restricted after the procedure, you must have a person to drive you home. Labs will be drawn in preop area and once reviewed, you will be taken to radiology area for procedure. When the procedure is completed, you will be taken to outpatient where you will be monitored for several hours. You may have one visitor in this area. Other than holding anti-coagulants, patient may take other medication(s) as scheduled. Prior to your appointment date patients are instructed to hold anti-coagulants after discussing with ordering provider to stop. If unable to discontinue anti-coagulants please notify radiologist. ? No aspirin or warfarin (Coumadin) for 7 days prior to the procedure. ? No clopidogrel (Plavix), ticagrelor (Brilinta), prasugrel (Effient) or dabigatran (Pradaxa) for 5 days prior to the procedure. ? No rivaroxaban (Xarelto), apixaban (Eliquis), dipyridamole (Aggrenox or Persantine) or cilostazol (Pletal) for 2 days prior to the procedure. Medications to discontinue per physician: N/A Date to take last dose: N/A Please leave all valuables, including medications, at home the day of procedure. The hospital will not accept responsibility for valuables. Wear comfortable, loose fitting clothing.? Follow any additional instructions given to you from ordering provider. Telephone instructions given to PT- SIMONE and asked if any additional questions and then verbalized understanding. Patient advised to call scheduling provider office or registration scheduling [phone] if any additional questions.
[2022-11-20] VITALS (8 sets, daily range): BP systolic 112–122; BP diastolic 50–68; PULSE 57–67; RESP 16; TEMP 36.2; O2SAT 97–99
--- NOTE | ~2022-11-20 | XR_ITS ---
EXAMINATION: 1. CT lumbar spine w con 2. XR myelogram spine lumbosacral DATE: 11/20/2022 09:50 INDICATION: Other specified postprocedural states. Low back pain. TECHNIQUE: The procedure including the risks, benefits, and alternatives was discussed with the patie nt. Risks discussed included headache, bleeding, and infection. The patient understood the risks and agreed to proceed. A timeout was performed to verify the patient's name, date of , and proced ure to be performed. The skin overlying the L2-L3 level was prepped and draped in usual sterile fash ion. Subcutaneous 1% lidocaine was used for local anesthesia. A 20 gauge spinal needle was advanced under fluoroscopic guidance. 17 mm Omnipaque 180 was injected. The needle was removed and the entry site was cleaned and dressed. There were no immediate complications. Fluoroscopy exposure time was 0 .4 minutes. The total number of images was 9. Computed tomography (CT) of the lumbar spine was perfor med without intravenous contrast. Automated exposure control and iterative reconstruction technique w ere employed. The dose-length product was 941.98 mGy-cm. COMPARISON: lumbar spine radiographs 05/03/22. FINDINGS: LUMBAR MYELOGRAM: Real-time fluoroscopy demonstrates the needle at the L2-L3 level. There is indentat ion of the thecal sac at multiple levels that will be further described on the post myelogram CT. POSTMYELOGRAM LUMBAR SPINE CT: Bone alignment is normal. There is mild chronic anterior wedging of T1 1 vertebral body. There are changes of anterior and posterior fusion procedures from L4 to S1 with pe dicle screws and interbody devices. There are lucencies around the left S1 screw, consistent with loo sening. There is moderately decreased disc height at T10-T11 and mildly decreased disc height at L3-L 4. There is bridging interbody bone at L4-L5, but not at L5-S1. The conus medullaris is at L2. The fo llowing disc levels are specifically discussed: L1-L2: The disc does not extend beyond the endplate margin. There is mild bilateral facet joint osteo arthritis. There is no neural foraminal stenosis. There is no central canal stenosis. L2-L3: The disc does not extend beyond the endplate margin. There is mild bilateral facet joint osteo arthritis. There is no neural foraminal stenosis. There is no central canal stenosis. L3-L4: The disc is bulging. There is mild bilateral facet joint osteoarthritis. There is hypertrophy of the ligamentum flavum. There is moderate bilateral neural foraminal stenosis. There is mild centra l canal stenosis. L4-L5: There is mild bilateral facet joint hypertrophy. There is mild right and moderate left neural foraminal stenosis. There is no central canal stenosis. There is posterior decompression. L5-S1: There is mild bilateral facet joint hypertrophy. There is moderate bilateral neural foraminal stenosis. There is no central canal stenosis. There is posterior decompression. IMPRESSION: 1. Anterior and posterior fusion procedures from L4 to S1 with bridging bone at L4-L5, but not at L5- S1. Lucency around the left S1 screw, consistent with loosening. 2. Moderate lumbar spondylosis. Reviewed, dictated and finalized at location A. IMPRESSION: 1. Anterior and posterior fusion procedures from L4 to S1 with bridging bone at L4-L5, but not at L5-S1. Lucency around the left S1 screw, consistent with loo sening. 2. Moderate lumbar spondylosis.
[2022-11-20 08:31] LABS: Platelet Count Result 208 k/mm3 (150-375)
[2022-11-20 08:42] LABS: Prothrombin Time 13.8 Seconds (11.1-14.7)
== END 2022-11-20 11:58 | disposition home or self-care (01) ==
PROVIDERS: PCP Internal Medicine; Referring Provider Neurological Surgery; Visit Provider Radiology Diagnostic Radiology
DX: M47.816 Spondylosis without myelopathy or radiculopathy, lumbar region (principal); Z98.890 Other specified postprocedural states; Z98.1 Arthrodesis status
CPT/HCPCS: 36415; 62304; 72132; 85049; 85610; Q9965